=== PATIENT | male | born 1985 | race Two or more races ===

== ENCOUNTER 2023-11-05 15:20 | Emergency (ER) | payer MEDICAID ==
[~2023-11-05] VITALS: Ht 170.2 cm; Wt 72.7 kg
[2023-11-05 15:23] VITALS: TEMP 98
[2023-11-05] MEDS ORDERED: METF-1211 PO (15:33)
[2023-11-05] MEDS ORDERED: LISI2.5T91 PO (15:33)
[2023-11-05 15:53] LABS: BASOPHILS % (AUTO) 0.6 % (0.0-2.0); EOSINOPHILS % (AUTO) 3.1 % (1.0-6.0); HEMATOCRIT 46.7 % (41-53); HEMOGLOBIN 15.4 g/dL (13.5-17.5); LYMPHOCYTES # (AUTO) 2.7 K/uL (1.0-4.8); LYMPHOCYTES % (AUTO) 41.1 % (22.0-44.0); MEAN CORPUSCULAR HEMOGLOBIN 29.4 pg (26.0-34.0); MEAN CORPUSCULAR VOLUME 89 fL (80-100); MONOCYTES # (AUTO) 0.6 K/uL (0.1-1.0); MONOCYTES % (AUTO) 9.3 % (2.0-9.0); NEUTROPHILS % (AUTO) 45.9 % (40.0-70.0); PLATELET COUNT (AUTO) 202 K/uL (150-450); RED BLOOD CELL COUNT(AUTO) 5.24 MIL/uL (4.50-5.90); RED CELL DISTRIBUTION WIDTH 13.6 % (11.5-14.5); WHITE BLOOD COUNT (AUTO) 6.4 K/uL (4.5-11.0)
[2023-11-05 16:03] LABS: ANION GAP 3 mmol/L (8-16); CALCIUM, TOTAL 9.5 mg/dL (8.8-10.5); CARBON DIOXIDE 32 mmol/L (22-29); CHLORIDE 103 mmol/L (98-107); CREATININE 1.01 mg/dL (0.60-1.30); GLOMERULAR FILTR. RATE CALC > 60 mL/min (>60); GLUCOSE,RANDOM 87 mg/dL (70-110); POTASSIUM 4.1 mmol/L (3.5-5.1); SODIUM SERUM 138 mmol/L (136-145); UREA NITROGEN, BLOOD 13 mg/dL (7-18)
[2023-11-05] MEDS ORDERED: FAMO20 PO (17:51)
[2023-11-05] MEDS: OMEPRAZOLE 20 MG CAPSULE PO ONE (18:00)
[2023-11-05] MEDS: ACETAMINOPHEN 500 MG TABLET PO ONE (18:01)
[2023-11-05] MEDS: KETOROLAC TROMETHAMINE 60 MG/2 ML VIAL IM ONE (18:03)
[2023-11-05 19:08] VITALS: BP 109/72; PULSE 59; RESP 20
[2023-11-05] MEDS ORDERED: ACET-66 PO (19:13)
[2023-11-05] MEDS ORDERED: IBUP-1554 PO (19:13)
== END 2023-11-05 19:34 | disposition home or self-care (01) ==
LOC: EMS 15:20
DX: R51.9 Headache, unspecified (principal); E11.9 Type 2 diabetes mellitus without complications
CPT/HCPCS: 99283; 80048; 82962; 85025; 36415; J1885